=== PATIENT | male | born 1945 | race Caucasian/White ===

== ENCOUNTER 2016-11-30 10:30 | Observation (INO) ==
[2016-11-30] MEDS ORDERED: ASPIRIN PO STA (10:37)
--- NOTE | 2016-11-30 10:41 | PROVIDER DOCUMENTATION ---
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 denies: fever/ chills Nitro Today/Relief: provided by ED Aspirin Treatment Today: provided by ED Prior Chest Pain/Cardiac Workup: reports: no prior chest pain Similar Symptoms Previously?: No Recently Seen Here or By Another Healthcare Provider: No <Berenice Bowen - Last Filed: 11/30/16 13:12> <Olman Medrano - Last Filed: 11/30/16 18:00> - General Stated Complaint: Elevated heart rate Time Seen by Provider: 11/30/16 10:05 Allergies/Adverse Reactions: Patient Allergies Allergy/AdvReac Type Severity Reaction Status Date / Time morphine Allergy Mild ITCHING Verified 11/30/16 10:39 Home Medications: Home Medication List Medication Instructions Recorded Confirmed Last Taken Type Cyclobenzaprine [Flexeril] 10 mg PO QHS 10/26/15 11/30/16 10/24/15 History Hydrocodone/APAP 10 mg/325 mg 10 mg PO Q8H PRN PRN 10/26/15 11/30/16 10/24/15 History [[place]-10] Lisinopril 20 mg PO DAILY 10/26/15 11/30/16 10/25/15 History Metoprolol Succinate E.r. [Toprol 100 mg PO DAILY 10/26/15 11/30/16 10/25/15 History Xl] Finasteride [Proscar] 5 mg PO DAILY #0 tablet 10/27/15 11/30/16 Unknown Rx Levothyroxine [Synthroid] 100 microgm PO DAILY #0 tablet 10/27/15 11/30/16 Unknown Rx Rivaroxaban [Xarelto] 20 mg PO WSUPPER #0 tablet 10/27/15 11/30/16 Unknown Rx Allopurinol [Zyloprim] 300 mg PO DAILY 11/30/16 11/30/16 Unknown History Gabapentin 300 mg PO DAILY 11/30/16 11/30/16 Unknown History Omeprazole [Prilosec] 40 mg PO DAILY 11/30/16 11/30/16 Unknown History Tamsulosin [Flomax] 0.4 mg PO DAILY 11/30/16 11/30/16 Unknown History Tramadol [Ultram] 50 mg PO BID 11/30/16 11/30/16 Unknown History - History of Present Illness-CP Nature of Presenting Problem: 70 y/o M presents to ED per EMS. Pt states he woke up this AM with SOB and took his albuterol inhaler. 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 Pt describes pain as heaviness. pt denies pain radiating. Pt states he does have a history of PEs. Pt denies any history of chest pain. Pt rates pain as 7/ 10. Pt also reports having epi pain and a frontal headache. Denies having nausea /vomiting with the chest pain . Denies dysuria/ hematuria . Pt is on a blood thinner. On EMS arrival EMS states pt was tachycardia. (Berenice Bowen) Review of Systems - Adult - REVIEW OF SYSTEMS - ADULT Constitutional: denies: chills, fever Cardiovascular: reports: chest pain. denies: palpitations Respiratory: reports: shortness of breath. denies: cough Gastrointestinal: reports: abdominal pain (epi pain), nausea. denies: diarrhea , vomiting Genitourinary: denies: dysuria, hematuria Musculoskeletal: denies: bone pain, back pain Neurological: reports: headache/migraines (frontal headache). denies: dizziness /vertigo <Berenice Bowen - Last Filed: 11/30/16 13:12> Past History - Adult - PAST MEDICAL HISTORY-ADULT Review of Records: reports: Old Records Reviewed, Nursing Assessment Review Cardiovascular: reports: HTN Endocrine/Immune: reports: cancer (skin ), Diabetes - PRIOR SURGERIES/PROCEDURES Surgical/Procedure History: reports: orthopedic (extremity) (knee ) - IMMUNIZATION STATUS Childhood Immunizations: See Nurse Assessment Flu Vaccine: See Nurse Assessment - SOCIAL HISTORY Smoking: denies Substance Use: denies <Berenice Bowen - Last Filed: 11/30/16 13:12> Physical Exam-General - PHYSICAL EXAM-ADULT Initial Vital Signs Reviewed: Yes - CONSTITUTIONAL General Appearance: alert, obese - EYES Eyes: PERRL/EOMI, pink conjunctivae - HEAD, EARS, NOSE, MOUTH & THROAT HENMT: normocephalic/atraumatic, moist mucous membranes, normal ENT inspection - NECK Neck: non-tender, full range of motion, supple - RESPIRATORY Respiratory: chest non-tender, lungs clear, normal breath sounds - CARDIOVASCULAR Cardiovascular: normal peripheral pulses, regular rate, rhythm, no edema - GASTROINTESTINAL (ABDOMEN) Abdominal Exam: normal bowel sounds, non tender, soft - LYMPHATIC Lymphatic: no adenopathy - MUSCULOSKELETAL Back Exam: normal inspection, no CVA tenderness, no vertebral tenderness Extremity: normal range of motion, non-tender, normal gait - SKIN Integumentary: normal color, normal turgor, warm/dry - 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 Pt and Pt familiy verbally understand the plan.) Reassessment #2 Time Reassessed: 01:08 Status: improving Reassessment Comment: Pt care has been taking over by (PCP). Pt is aware of scan results - CT/MRI 1 CT Study: Angiogram Impression: Normal CT Results: NO PE or change from 09/18/10, coronary calcification - ( rad) 2 CT Study: Abdomen, Pelvis Impression: Normal CT Results: NAD;no AAA seen- (radiologist) <Berenice Bowen - Last Filed: 11/30/16 13:12> <Olman Medrano - Last Filed: 11/30/16 18:00> - PLAN OF CARE/RESULTS Progress/Plan/Lab Results: PLAN: CT TO RULE OUT PE/ CT TO RULE OUT AAA. Pt will be given nitro and asprin. NURSE NOTIFIED (PCP) OF PT BEING IN ED. DR. CARTY CAME TO ED TO SEE PT . PT CARE HAS BEEN TAKING OVER BY (PCP). Laboratory Tests 11/30/16 11/30/16 11/30/16 10:15 10:15 10:15 WBC 10.90 H RBC 5.13 Hgb 15.3 Hct 46.4 MCV 90.4 MCH 29.8 MCHC 33.0 RDW Std Deviation 14.8 H Plt Count 294 MPV 9.7 Immature Gran % (Auto) 0.3 Neut % (Auto) 84.4 H Lymph % (Auto) 11.4 L Whitman % (Auto) 3.9 Eos % (Auto) 0.0 Baso % (Auto) 0.0 Immature Gran # (Auto) 0.03 Neut # (Auto) 9.21 H Lymph # (Auto) 1.24 Whitman # (Auto) 0.42 Eos # (Auto) 0.00 Baso # (Auto) 0.00 PT INR PTT (Actin FS) D-Dimer 0.63 H Sodium 139 Potassium 4.4 Chloride 96 L Carbon Dioxide 29 Anion Gap 14 BUN 31 H Creatinine 1.2 Estimated GFR/1.73 m2 60 BUN/Creatinine Ratio 26 Glucose 126 H Calculated Osmolality 286 Calcium 9.4 Magnesium 2.1 Total Bilirubin 0.50 AST 35 H ALT 53 H Alkaline Phosphatase 68 Creatine Kinase 162 Troponin T Ziz-[id number]-Wobntbsctfb Pept Total Protein 7.0 Albumin 4.2 Globulin 2.8 Albumin/Globulin Ratio 1.5 11/30/16 11/30/16 11/30/16 10:15 10:15 10:15 WBC RBC Hgb Hct MCV MCH MCHC RDW Std Deviation Plt Count MPV Immature Gran % (Auto) Neut % (Auto) Lymph % (Auto) Whitman % (Auto) Eos % (Auto) Baso % (Auto) Immature Gran # (Auto) Neut # (Auto) Lymph # (Auto) Whitman # (Auto) Eos # (Auto) Baso # (Auto) PT 12.7 H INR 1.20 PTT (Actin FS) 29.6 D-Dimer Sodium Potassium Chloride Carbon Dioxide Anion Gap BUN Creatinine Estimated GFR/1.73 m2 BUN/Creatinine Ratio Glucose Calculated Osmolality Calcium Magnesium Total Bilirubin AST ALT Alkaline Phosphatase Creatine Kinase Troponin T < 0.010 Lud-Y-Sjkdtogiszm Pept 441 H Total Protein Albumin Globulin Albumin/Globulin Ratio Orders Category Date Time Status Cardiac Monitoring DIRECTED Care 11/30/16 10:38 Active Saline Loc NOW Care 11/30/16 10:38 Active ANGIOGRAM/PULMONARY ARTERIES [CT] Stat Exams 11/30/16 10:44 Draft CTA ABD/PELVIS W/CONTRAST [CT] Stat Exams 11/30/16 10:44 Taken CBC WITH ELECTRONIC DIFF [HEME] Stat Lab 11/30/16 10:15 Completed CK PROFILE [SP CHEM] Stat Lab 11/30/16 10:15 Completed COMPREHENSIVE METABOLIC PANEL [CHEM] Stat Lab 11/30/16 10:15 Completed D-DIMER [CHEM] Stat Lab 11/30/16 10:15 Completed MAGNESIUM [CHEM] Stat Lab 11/30/16 10:15 Completed PRO B-NATRIURETIC PEPTIDE Stat Lab 11/30/16 10:15 Completed PROTIME WITH INR [COAG] Stat Lab 11/30/16 10:15 Completed PTT [COAG] Stat Lab 11/30/16 10:15 Completed TROPONIN T Stat Lab 11/30/16 10:15 Completed Aspirin Med 11/30/16 10:37 Discontinued 325 mg PO STAT STA Nitroglycerin Sl [Nitroglycerin] Med 11/30/16 10:37 Active 0.4 mg SL Q5M PRN PRN EKG [EKG] Stat Ther 11/30/16 10:38 Draft Transfer/Admit Order [TRANSFER] Routine Transfer 11/30/16 12:26 Ordered Vital Signs - 24 hr 11/30/16 11/30/16 11/30/16 10:31 10:54 12:29 Temperature 98.7 F Pulse Rate 87 76 62 Respiratory 20 14 18 Rate Blood Pressure 193/98 147/84 141/78 O2 Sat by Pulse 96 94 L 100 Oximetry (Berenice Bowen) patient revisited multiple times while in ED and says that he is pain free. ( Olman Medrano) Departure - Departure Time of Disposition Order: 13:19 Certified Medical Emergency: Emergent <Berenice Bowen - Last Filed: 11/30/16 13:12> <Olman Medrano - Last Filed: 11/30/16 18:00> - Departure DIAGNOSIS: ACS (acute coronary syndrome), Elevated d-dimer Chest pain Qualifiers: Chest pain type: unspecified Qualified Code(s): R07.9 - Chest pain, unspecified Disposition: ADMITTED INPATIENT 09 Condition: Stable Attestation - Scribe Verification/Attestation Scribe:: Berenice Bowen Acting as Scribe for:: Olman Medrano Scribe documention review:: This chart was documented by a scribe and accurately reflects the service the provider performed and the decisions made by the provider. <Berenice Bowen - Last Filed: 11/30/16 13:12> Physician Attestation - Physician Attestation I, the provider, attest to the following statement:: Olman Medrano Physician documentation Attestation:: This documentation recorded by the scribe accurately reflects the service I personally performed and the decisions made by me. <Olman Medrano - Last Filed: 11/30/16 18:00>
[2016-11-30 10:44] LABS: MANUAL DIFF NEEDED? NO
[2016-11-30] MEDS: NITROGLYCERIN SL PRN ×2 (10:45→10:50)
[2016-11-30 10:47] LABS: HEMATOCRIT 46.4 % (42.0-52.0); HEMOGLOBIN 15.3 g/dL (14.0-18.0); IMM GRAN# 0.03 X1000 (0.0-0.04); IMM GRAN% 0.3 % (0.0-0.5); LYMPH# 1.24 X1000 (1.2-3.4); LYMPH% 11.4 % (20.5-51.1); MCH 29.8 PG (27-31); MCV 90.4 FL (81-99); MONO# 0.42 X1000 (0.11-0.59); MONO% 3.9 % (1.7-9.3); MPV 9.7 FL (7.4-10.4); NEUT% 84.4 % (42.2-75.2); PLT 294 X1000 (130-400); RBC 5.13 XMIL (4.7-6.1)
[2016-11-30 11:07] LABS: ALBUMIN 4.2 g/dL (3.5-5.0); CALCIUM 9.4 mg/dL (8.8-10.2); MAGNESIUM 2.1 mg/dL (1.5-2.7); POTASSIUM 4.4 mmol/L (3.5-5.1); TOTAL BILIRUBIN 0.5 mg/dL (0.20-1.00)
[2016-11-30 11:47] LABS: INR 1.2; PROTIME 12.7 Seconds (9.2-11.7); PTT 29.6 Seconds (22.0-36.0)
--- NOTE | 2016-11-30 11:47 | ED EKG INTERP ---
EKG Interpretation - EKG Time of EKG reading by physician:: 10:08 EKG Read and Signed by:: Olman Medrano EKG Interpretation (*Must complete 3 of following elements*): Abnormal Rate: 88 Rhythm: NSR QRS: RBB OH Interval: normal ST Wave: normal Comments: bifasicular block
--- NOTE | 2016-11-30 12:43 | EKG Report ---
Test Performed on : 11/30/2016 10:08:55 AM Test Reason : Chest Pain Blood Pressure : / mmHG Vent. Rate : 088 BPM Atrial Rate : 088 BPM P-R Int : 176 ms QRS Dur : 122 ms QT Int : 390 ms P-R-T Axes : 045 -55 021 degrees QTc Int : 471 ms Normal sinus rhythm. Right bundle branch block Left anterior fascicular block Bifascicular block Inferior infarct , age undetermined Abnormal ECG When compared with ECG of 18-SEP-2010 11:09, Inferior infarct is now present Unconfirmed Result
--- NOTE | 2016-11-30 12:46 | Diag Imaging Result Document ---
PROCEDURE NAME: ANGIOGRAM/PULMONARY ARTERIES - 11/30/2016 CT OF THE CHEST WITH INTRAVENOUS CONTRAST: FINDINGS: There are no apparent filling defects in the pulmonary arteries. The thoracic aorta is without evidence of aneurysm or dissection. There are some coronary calcifications present. There is no evidence of significant adenopathy. No abnormal fluid collections are present. There is some fibrosis in the right middle lobe and both lower lobes which has not changed since 09/18/2010. There is a calcified granuloma in the right lower lobe. The regional skeleton is stable in appearance. IMPRESSION: No evidence of acute disease.
--- NOTE | 2016-11-30 13:15 | Diag Imaging Result Document ---
PROCEDURE NAME: CTA ABD/PELVIS W/CONTRAST - 11/30/2016 CT ANGIOGRAM ABDOMEN WITH CONTRAST: Exam performed with intravenous contrast. Axial, reformatted sagittal and coronal, and reformatted 3D rotating MIP images are obtained. A dose-reduction protocol was used. FINDINGS: There is no evidence of abdominal aortic aneurysm. There is no evidence of abdominal aortic dissection. The celiac axis, superior mesenteric artery, and inferior mesenteric artery are patent and demonstrate no substantial stenoses. The bilateral renal arteries are patent and show no definite substantial stenosis. There is fatty infiltration of the liver. There is no focal liver lesion identified. There are nonspecific [id number] retroperitoneal lymph nodes similar to a 10/26/2015 CT abdomen and pelvis. There is no evidence of bowel obstruction. There is uncomplicated colonic diverticulosis. There is no free air. There are no calcified gallstones seen. There is nonspecific mild mesenteric haziness similar to the previous exam. IMPRESSION: No evidence of abdominal aortic aneurysm or dissection.
--- NOTE | 2016-11-30 13:17 | HISTORY AND PHYSICAL ---
Mr. Adiel Johnson is a 70-year-old gentleman who is well known to me. 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 I had recently seen him in the office where we treated him for an acute bronchitis with oral antibiotics, decongestants and cough syrups. He woke up this morning with overwhelming severe stabbing left anterior chest pain. There was no radiation of pain to his neck or arm. He had difficulty breathing. Reportedly his heart rate was in the 200s according to the EMT personnel. His initial cardiac enzymes were normal. He denied any PND, orthopnea or increasing peripheral edema. As stated earlier, he does have a history of recurrent pulmonary emboli and is currently taking Xarelto. A CT scan of the pulmonary arteries demonstrated no deep venous thrombosis. No infiltrates or pneumonias were noted on the CT. At the time of this dictation his heart rate had dropped into the 70s and he was resting comfortably. PAST MEDICAL HISTORY: As above. PAST SURGICAL HISTORY: Bilateral total knee replacement, right ulnar release, lumbar diskectomy. ALLERGIES: Morphine. MEDICATIONS: Allopurinol 300 mg daily. Bydureon 2 mg daily. Duloxetine 60 mg daily. Finasteride 5 mg daily. Levothyroxine 100 mcg daily. Lisinopril 20 mg daily. Lyrica 75 mg daily. Reglan 5 mg t.i.d. Metoprolol 100 mg daily. Prilosec 40 mg daily. Tramadol extended release 50 mg b.i.d. Wellbutrin SR 150 mg b.i.d. Xarelto 20 mg daily. FAMILY HISTORY: His father had known ischemic heart disease status post VT, diabetes and prostate cancer. His mother had diabetes and coronary artery disease. SOCIAL HISTORY: He has never smoked. He does not consume alcoholic beverages. REVIEW OF SYSTEMS: He denies any recent weight gain or weight loss.HEENT: He wears glasses. Cardiovascular: See HPI. Pulmonary: See HPI. GI: No reflux, dysphagia, melena, hematochezia, change in bowel habits, or rectal bleeding. Endocrine: No polyuria, no polydipsia. No cold or heat intolerance. Skin: No easy bruisability. Neurologic: No history of migraines. Psychiatric: History of depression. Temperature 98.5 degrees, pulse 62, respirations 18, BP 141/78. This is a well-developed, well- nourished, 70-year-old gentleman who is markedly overweight. His breathing appears unlabored. He is without chest pain. HEENT: Pupils equal, round, reactive to light. Extraocular eye movements intact. TMs without bullae. Neck: Supple. No masses, JVD or bruits. CV: Regular rate and rhythm. Lungs: Clear. No wheezing with forced expiration. Abdomen: Soft, nontender, with active bowel sounds. No hepatosplenomegaly. No abdominal bruits. Extremities: Trace ankle edema. I did not appreciate any unilateral significance swelling or obvious subcutaneous nodules that would raise the suspicion for a DVT. Neurologic: He has decreased light touch in the distal extremities bilaterally. ASSESSMENT AND PLAN: 1. Unstable angina in the face of known ischemic heart disease. Certainly the overwhelming chest pain, tachycardia and dyspnea with his history of multiple pulmonary thromboemboli made me suspicious that he had another embolus. Fortunately his CT scan of the pulmonary angiogram was grossly normal. I am going to admit him to [facility]. We will treat him with aspirin, topical nitrates, Lovenox 1 mg/kg subcutaneously b.i.d. and will rule him out for myocardial ischemia by serial enzymes. We will consult Cardiology. 2. Type 2 noninsulin-dependent diabetes mellitus. We will continue an 1800 calorie ADA diet, pattern sugars and a Humulin R sliding scale. 3. Hypertension. His blood pressure is generally well controlled. We will continue his current regimen of medications. Given the patient's symptoms and comorbid conditions, I believe that it is reasonable to admit him for further observation overnight at [facility]. At this point, I believe given the severe chest pain and tachycardia with a history of ischemic heart disease that he is at high risk for an adverse event should we try to discharge him. At this point in time, I only anticipate that he will be in the hospital for at least 1 midnight and I will therefore place him in outpatient status with observation services.
[2016-11-30] MEDS ORDERED: LOVENOX SUBQ ONE (13:44)
[2016-11-30] MEDS ORDERED: NITROGLYCERIN TOP ONE (13:44)
[2016-11-30] MEDS ORDERED: NORCO-10 PO PRN (13:44)
[2016-11-30] MEDS ORDERED: TYLENOL PO PRN (13:44)
[2016-11-30] MEDS ORDERED: DESYREL PO PRN (13:44)
[2016-11-30] MEDS ORDERED: ZOFRAN IV PRN (13:44)
--- NOTE | 2016-11-30 14:56 | CONSULTATION ---
DATE OF CONSULTATION: 11/30/2016 Cardiology consulted for chest pain. 70-year-old gentleman with multiple medical problems including hypertension, ischemic heart disease, pulmonary embolism in the past, is on Xarelto and has gastroesophageal reflux disease as well. Has had features of bronchitis with oral decongestants and cough syrups. This morning he woke up with a stabbing chest pain in the anterior wall. He says that every time he coughs he had the chest discomfort. He also mentioned that on taking inhalers his pain worsened so he stopped taking his inhaler this morning. He came in and had a CT scan done. There was no pulmonary embolism. CT scan abdomen was unremarkable. He does not complain of any palpitations. As far as chest pains are concerned, prior to this, he had last cardiac catheterization in [facility] 15-20 years ago per patient that was normal at that time. He has not had any exertional component of chest pain recently however exercise capacity is limited. PAST MEDICAL HISTORY: 1. Hypertension. 2. Diabetes. 3. History of pulmonary embolism in the past. 4. Gastroesophageal reflux disease. 5. Hughes's esophagus. 6. Bilateral total knee replacement. 7. Right ulnar release. 8. Lumbar diskectomy. ALLERGIES: He is allergic to morphine. HOME MEDICATIONS: Allopurinol 300, Bydureon, duloxetine, finasteride, levothyroxine 100, lisinopril 20, Lyrica 75, Reglan 5 t.i.d., metoprolol-XL 100, Prilosec, tramadol, Wellbutrin. FAMILY HISTORY: His father is known to have coronary artery disease. SOCIAL HISTORY: He has never smoked. Does not consume alcohol. REVIEW OF SYSTEMS: 14 point review of system was done. PHYSICAL EXAMINATION: Vital Signs: Blood pressure was 141/78. Cardiovascular System: Normal jugular venous pressure. There is no thyromegaly. No carotid bruit. First and second heart sounds were heard. There is no S3, S4 or gallop. Respiratory System: Normal air entry. There are no crepitations or rhonchi. Abdomen: Soft, nontender. There was no guarding or rigidity. Bowel sounds were heard. Central nervous system: Alert and was moving all 4 extremities. Extremities: Examination of extremities revealed no pedal edema. HEENT: Atraumatic, normocephalic. Pupils were equal and reacting to light. REVIEW OF SYSTEMS: GI System: There is no history of nausea, vomiting, diarrhea. There is no history of melena. Central Nervous System: No focal weakness to suggest a CVA or TIA. Genitourinary System: There is no dysuria or hematuria. ASSESSMENT AND PLAN: Mr. Adiel Johnson is a 70-year-old gentleman with history of hypertension, diabetes, gastroesophageal reflux disease. Has been having chest pain on coughing especially in his anterior chest wall. His cardiac enzyme was negative. He is pain-free at the time of my examination. He had a CT scan done for his abdomen and pelvis and chest as well. There is no pulmonary embolism. He has a history of pulmonary embolism. From a cardiac standpoint, would recommend Lexiscan Cardiolite stress test to assess for and rule out ischemia. This could be done as an outpatient as well. He is otherwise comfortable, not having any further chest pains. For diabetes continue with current medications. Blood pressure is stable. Continue with current medications. Hypothyroidism, continue with current medications. History of pulmonary embolism, is on Xarelto. I have not made any changes. He has been ruled out for PE. Thank you for the consult. We will follow hospital course.
[2016-11-30] MEDS: NS 1,000 ML IV SCH (15:00)
[2016-11-30] MEDS ORDERED: FLEXERIL PO SCH (21:00)
[2016-11-30] MEDS: ULTRAM PO SCH (21:13)
[2016-12-01] MEDS: NS 1,000 ML IV SCH (03:57)
[2016-12-01 04:35] VITALS: BP 133/75
[2016-12-01] MEDS ORDERED: PRILOSEC PO SCH (09:00)
[2016-12-01] MEDS ORDERED: NEURONTIN PO SCH (09:00)
[2016-12-01] MEDS ORDERED: TOPROL XL PO SCH (09:00)
[2016-12-01] MEDS ORDERED: FLOMAX PO SCH (09:00)
[2016-12-01] MEDS ORDERED: PRINIVIL PO SCH (09:00)
[2016-12-01] MEDS ORDERED: ZYLOPRIM PO SCH (09:00)
[2016-12-01] MEDS ORDERED: PROSCAR PO SCH (09:00)
[2016-12-01] MEDS ORDERED: SYNTHROID PO SCH (09:00)
[2016-12-01] MEDS: ULTRAM PO SCH (10:14)
--- NOTE | 2016-12-01 16:29 | DISCHARGE SUMMARY ---
ADMISSION DATE: 11/30/2016 DISCHARGE DATE: 12/01/2016 This is a 70-year-old patient of Dr. Dougie Collins. He had a history of multiple medical problems including central hypertension, ischemic heart disease, recurrent pulmonary thromboemboli. He is on Xarelto. Type 2 noninsulin diabetes mellitus, chronic renal insufficiency, gastroesophageal reflux disease. He had Hughes's esophagus, osteoarthritis, chronic lower back pain secondary to lumbar spinal stenosis. Recently he has been seen in the office by Dr. Collins for bronchitis, put on oral antibiotics, decongestants, cough syrups. Woke up the morning of 11/30/2016 with overwhelming severe stabbing left anterior chest pain. Radiation of pain in neck and arm. He had difficulty breathing and heart rate was 200s. He according to the EMT personal called 911 and was brought here. Has a history recurrent pulmonary emboli in the past and currently taking Xarelto. CT of the pulmonary arteries demonstrated deep venous thrombosis. Note demonstrated no pulmonary arterial stenosis and no infiltrates or pneumonia. His enzymes were negative. EKG unremarkable. Other significant past medical history, bilateral total knee replacement, right ulnar release, lumbar diskectomy. He had a pulmonary arteriogram done yesterday and no evidence of acute disease. So Dr. Russell had seen him for Cardiology. He felt it was atypical chest pain. Cardiac enzymes were negative. [place] he could get followup and recommended a Lexiscan Cardiolite stress test as an outpatient. He wants to go home so we will discharge him home. He will continue his concurrent medications. He will be on [place] 10 mg q.8 hours p.r.n., allopurinol 300 mg daily, Flexeril 10 mg at bedtime, Neurontin 300 mg a day, Synthroid 100 mcg a day, Prinivil 20 mg daily, Toprol-XL 100 mg a day, Prilosec 40 mg a day, Flomax 0.4 mg daily, Ultram 50 mg b.i.d., Desyrel 50 mg a day.
== END 2016-12-01 14:40 | disposition home or self-care (01) ==
LOC: EDBD → ED 10:30 → SUPCPDRO 10:30 → 3N 12:55
PROVIDERS: ADMIT Internal Medicine; ATTEND Internal Medicine
DX: R07.89 Other chest pain (principal); I25.9 Chronic ischemic heart disease, unspecified; E11.9 Type 2 diabetes mellitus without complications; I10 Essential (primary) hypertension; Z86.711 Personal history of pulmonary embolism; R79.1 Abnormal coagulation profile; K21.9 Gastro-esophageal reflux disease without esophagitis; R10.13 Epigastric pain; R11.0 Nausea; R06.02 Shortness of breath; R00.0 Tachycardia, unspecified; Z79.01 Long term (current) use of anticoagulants; Z79.899 Other long term (current) drug therapy; Z85.828 Personal history of other malignant neoplasm of skin; Z96.653 Presence of artificial knee joint, bilateral; Z82.49 Family history of ischemic heart disease and other diseases of the circulatory system; Z83.3 Family history of diabetes mellitus; Z80.42 Family history of malignant neoplasm of prostate
CPT/HCPCS: 71275; 74174; 80053; 82550; 82948; 83735; 83880; 84484; 85025; 85379; 85610; 85730; 93005; J1650; J7030; Q9967; S0138